=== PATIENT | male | born 1955 | race Caucasian/White ===

== ENCOUNTER 2019-01-08 09:49 | Day surgery (SDC) | payer MEDICARE ==
[~2019-01-08] VITALS: Ht 172.7 cm; Wt 100.8 kg
[~2019-01-08 09:49] MED LIST: AMLO5 PO; ATEN25 PO; Catapres0.3 MG PO; FLUT44OIA INH; LISI20 PO; LOSARTAN POTAS100 MG PO
[2019-01-08] MEDS ORDERED: POTA10T PO (10:20)
== END 2019-01-08 11:35 | disposition home or self-care (01) ==
LOC: ORSCSDS 09:49
PROVIDERS: Internal Medicine Gastroenterology
PROC: 0DJD8ZZ Inspection of Lower Intestinal Tract, Via Natural or Artificial Opening Endoscopic (ICD-10-PCS; principal; 2019-01-08 11:15)
DX: Z12.11 Encounter for screening for malignant neoplasm of colon (principal); K64.8 Other hemorrhoids; Z86.010 Personal history of colon polyps; Z80.0 Family history of malignant neoplasm of digestive organs; I10 Essential (primary) hypertension; Z79.899 Other long term (current) drug therapy
CPT/HCPCS: J7120

== ENCOUNTER → 2025-06-23 | Outpatient (CLI) | payer MEDICARE ==
[~2025-06-23] MED LIST changes: +CEPH500 PO; +POTA10T PO
[2025-06-23 20:17] LABS: Alanine Aminotransfer (ALT/SGP 26.0 U/L (12-78); Albumin, Blood 3.9 g/dL (3.4-5.0); Albumin/Globulin Ratio 1.2 (0.8-1.8); Anion Gap 6.0 mmol/L (3-11); Aspartate Aminotrans (AST/SGOT 21.0 U/L (12-37); Bilirubin, Total 0.7 mg/dL (0.1-1.0); Blood Urea Nitrogen 21.0 mg/dL (8-24); CO2, Blood 29.0 mmol/L (21-32); Calcium, Blood 9.1 mg/dL (8.5-10.1); Chloride, Blood 105.0 mmol/L (98-108); Creatinine, Blood 1.09 mg/dL (0.60-1.20); Globulin, Blood 3.3 g/dL (2.2-4.0); Glucose, Blood 93.0 mg/dL (70-99); Potassium, Blood 3.4 mmol/L (3.5-5.5); Sodium, Blood 137.0 mmol/L (136-145); Total Protein, Blood 7.2 g/dL (6.4-8.2)
== END ==
LOC: LAB 14:26 → LAB SHORT 14:26
PROVIDERS: Family Medicine
DX: R74.8 Abnormal levels of other serum enzymes (principal); R79.89 Other specified abnormal findings of blood chemistry
CPT/HCPCS: 80053

== ENCOUNTER 2025-07-13 10:56 | Day surgery (SDC) | payer MEDICARE ==
[~2025-07-13] VITALS: Ht 172.7 cm; Wt 108.5 kg
[~2025-07-13 10:56] MED LIST changes: +Balanced Salt Epinephrine Irrigation Solution 500 mL IR SCH; +Moxifloxacin HCL 0.5 MG/0.1 ML 0.4MLSYR RIGHTEYE SCH; +Ondansetron 4 MG SoluTab MM PRN; +PHENYLEPHRINE\\TROPICAMIDE\\TETRACAINE OPHTHALMIC DILATING SOLN RIGHTEYE PRN; +Povidone-Iodine 450 DROP/30 ML Solution ONE; +Povidone-Iodine 450 DROP/30 ML Solution RIGHTEYE SCH; +Tetracaine HCl/Pf 0.5% Opth Soln 4 ml ONE; +Triamcinolone Inj Susp 40 MG / ML 1ML Vial INJ SCH; +Triamcinolone Inj Susp 40 MG / ML 1ML Vial ONE
--- NOTE | 2025-07-13 12:17 | NUR ---
07/13/25 1217 Cynthia Zelaya PT STATES HE HAS ANXIETY UPON ARRIVAL AT A 12/27. VALIUM 10MG ADMINISTERED AT 1208. PULSE OXIMETRY IN PLACE SHOWING SP02 AT 98% ON RA. TETRACAINE IN AT 1200 PLEDGETT IN AT 1201 PT TOLERATED WELL SIDE RAILS UP, CALL LIGHT IN REACH. DR MORENO INFORMED OF ELEVATED BP OF 180s/100s AND AUTHORIZED VALIUM BE GIVEN.
--- NOTE | 2025-07-13 12:52 | NUR ---
07/13/25 1252 Mary Carmen Zhang HR:80 RR:16 BP:155/92 SPO2:99% ON 10L BLOW BY O2
[2025-07-13 13:12] VITALS: BP 168/86
== END 2025-07-13 13:31 | disposition home or self-care (01) ==
LOC: ORSCSDS 10:56
PROVIDERS: Ophthalmology
PROC: 08RJ3JZ Replacement of Right Lens with Synthetic Substitute, Percutaneous Approach (ICD-10-PCS; principal; 2025-07-13 13:00)
DX: H25.811 Combined forms of age-related cataract, right eye (principal); H52.201 Unspecified astigmatism, right eye; I10 Essential (primary) hypertension; Z79.899 Other long term (current) drug therapy
CPT/HCPCS: A9270; J3301; V2632

== ENCOUNTER 2025-07-21 07:01 | Day surgery (SDC) | payer MEDICARE ==
[~2025-07-21] VITALS: Ht 172.7 cm; Wt 106.5 kg
[~2025-07-21 07:01] MED LIST changes: +Moxifloxacin HCL 0.5 MG/0.1 ML 0.4MLSYR LEFTEYE SCH; -Moxifloxacin HCL 0.5 MG/0.1 ML 0.4MLSYR RIGHTEYE SCH; +PHENYLEPHRINE\\TROPICAMIDE\\TETRACAINE OPHTHALMIC DILATING SOLN LEFTEYE PRN; -PHENYLEPHRINE\\TROPICAMIDE\\TETRACAINE OPHTHALMIC DILATING SOLN RIGHTEYE PRN; +Povidone-Iodine 450 DROP/30 ML Solution LEFTEYE SCH; -Povidone-Iodine 450 DROP/30 ML Solution RIGHTEYE SCH
[2025-07-21] MEDS ORDERED: GABA300 (07:39)
--- NOTE | 2025-07-21 07:43 | NUR ---
07/21/25 0743 Mary Carmen Soto PT STATES ANXIETY LEVEL IS 0/10 AT 0736. CALL LIGHT IN HAND PT HAS CONTINUOUS PULSE OX MONITORING ON
--- NOTE | 2025-07-21 08:37 | NUR ---
07/21/25 0837 Merline Ferris 0827 BP:132/84 HR:58 O2:97% RESP:16
[2025-07-21 08:43] VITALS: BP 131/99
== END 2025-07-21 08:53 | disposition home or self-care (01) ==
LOC: ORSCSDS 07:01
PROVIDERS: Ophthalmology
PROC: 08RK3JZ Replacement of Left Lens with Synthetic Substitute, Percutaneous Approach (ICD-10-PCS; principal; 2025-07-21 08:30)
DX: H25.812 Combined forms of age-related cataract, left eye (principal); H52.202 Unspecified astigmatism, left eye; Z96.1 Presence of intraocular lens; I10 Essential (primary) hypertension; Z79.899 Other long term (current) drug therapy
CPT/HCPCS: A9270; J2003; J3301; V2632